=== PATIENT | female | born 1970 | race Caucasian/White ===

== ENCOUNTER 2024-03-09 21:32 | Emergency (ER) | payer OTHER ==
[2024-03-09 23:39] LABS: Absolute Basophils 0.1 K/uL (0-0.5); Absolute Eosinophils 1.1 K/uL (0-0.5); Absolute Monocytes 0.4 K/uL (0.1-1.3); Absolute Neutrophil 2.5 K/uL (1.8-8.0); Eosinophils % 17.3 % (0-4.4); Hematocrit 25.9 % (36.0-45.0); Hemoglobin 7.9 g/dL (12.0-15.0); Lymphocytes % 33.3 % (15.3-44.8); MCH 17.7 pg (27.0-35.0); MCHC 30.4 g/dL (32.0-36.0); MCV 58.2 fL (80-100); MPV 8.3 fL (7.6-11.3); Neutrophils % 41.4 % (41.7-73.7); Nucleated Red Blood Cells % 0.2 % (0-0); Platelets 383 thou/uL (152-406); RBC Red Blood Cell Count 4.46 M/uL (3.86-4.86); Red Cell Distribution Width 21.2 % (12.1-15.2)
[2024-03-09 23:43] LABS: PTT, Activated Partial Thromb 28.9 SECONDS (24.3-36.9); Protime INR 1.09
[2024-03-09 23:45] LABS: Albumin 3.2 g/dL (3.4-5.0); Albumin/Globulin Ratio 0.8 (1.1-1.8); Anion Gap 7.2 mEq/L (5.0-15.0); Bilirubin Total 0.3 mg/dL (0.2-1.0); Calcium Oxalate Crystals- Ur Few /HPF (None Seen); Globulin 4.1 g/dL (2.3-3.5); Potassium 3.2 mEq/L (3.5-5.1); Protein, Total 7.3 g/dL (6.4-8.2); Specific Gravity > 1.030 (1.005-1.030); Urine Bacteria 20-50 /HPF (<20); Urine Bilirubin NEGATIVE (Negative); Urine Blood 1+ (Negative); Urine Clarity Extremely Turbid (Clear); Urine Color Yellow (Yellow); Urine Culture Reflex Order NOT NEEDED; Urine Glucose NEGATIVE (Negative); Urine Ketones TRACE (Negative); Urine Microscopic Reflex YN ORDER UMIC; Urine Mucus 2+ /HPF (None Seen); Urine Nitrite 2+ (Negative); Urine Protein 1+ (Negative); Urine RBC <5 /HPF (None Seen); Urine Urobilinogen 1+ (Normal); Urine WBC <5 /HPF (<5); Urine pH 5.5 (5.0-7.0)
[2024-03-10] MEDS ORDERED: CEFTRIAXONE 1000 MG/VIAL ONE (00:06)
[2024-03-10 00:20] LABS: Blood Morphology Comment NOTED (NOT SEEN); Differential Total Cells Count 100; Eosinophils 22 % (0-3); Lymphocytes 32 % (15-42); Monocytes 5 % (0-10); Platelet Estimate ADEQ; Segmented Neutrophils 40 % (40-80)
[2024-03-10 00:21] LABS: Hypochromasia 3+; Microcytosis 3+; Target Cells 1+
--- NOTE | 2024-03-10 01:01 | EDPHYS ---
Physician Documentation [facility] Name: Jennifer Bowman Age: 53 yrs Sex: Female : 1970 Arrival Date: 03/09/2024 Time: 21:32 Bed 23 Private MD: ED Physician Rodo Christy HPI: 03/09 22:03 This 53 yrs old Female presents to ER via Ambulatory with complaints of ec2 stomach painful problem. 22:03 Patient arrives today for evaluation of worsening abdominal distention. Patient reports ec2 that she has been having abdominal distention and pain for the past year. Patient reports that she is more distended which is what prompted evaluation today. Patient reports no history of liver disease, no previous malignancy diagnosis, no daily alcohol use.. 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 - Infectious Disease History:: Denies. - Social history:: Smoking status: Patient reports the use of cigarette tobacco products. ROS: 22:03 Constitutional: as per hpi ec2 Exam: 22:03 Constitutional: GEN: NAD Head: atraumatic Eyes: EOMI Ears: External ears are ec2 normal. CV: tachy LUNGS: no respiratory distress ABD: Distended individual who is not guarding and not rigid with minimal TTP. SKIN: no evidence of rashes MSK: no evidence of trauma NEURO: moves all extremities equally Vital Signs: 21:42 BP 139 / 70; Pulse 112; Resp 18; Temp 98.1; Pulse Ox 100% ; Weight 66.68 kg; Height 5 bm8 ft. 4 in. ; Pain 10/10; 03/10 01:25 BP 118 / 80; Pulse 92; Resp 16; Temp 97.8; Pulse Ox 100% ; Pain 4/10; kb3 03/09 21:42 Body Mass Index 25.23 (66.68 kg, 162.56 cm) bm8 03/09 21:42 Pain Scale: Adult bm8 03/10 01:25 Pain Scale: Adult kb3 MDM: 03/09 22:03 Data reviewed: vital signs. ED course: Patient arrives today for evaluation of ec2 worsening abdominal distention. Examination remarkable for well-appearing nontoxic and appears otherwise in no acute distress with a distended abdomen with slightly tachycardic. Will obtain lab work, CT imaging. Differential diagnosis include malignancy, liver disease, renal dysfunction. . 22:22 Patient medically screened. ec2 23:38 ED course: I discussed the case with radiology, patient with a large cystic mass, ec2 concerning for ovarian neoplasm. . 23:54 ED course: Metabolic profile shows hypokalemia with potassium of 3.2, urine is ec2 infectious appearing. CBC shows marked anemia with a hemoglobin of 7.9. . 03/10 00:59 ED course: I updated the patient regarding the cancer diagnosis I discussed further ec2 testing and ultimately she stated that she has a primary care doctor that she has been waiting to schedule appointment and will follow-up with them. I discussed importance of further testing and management.. 03/09 22:02 Order name: CBC with Diff; Complete Time: 00:44 ec2 03/09 22:02 Order name: CMP; Complete Time: 23:54 ec2 03/09 22:02 Order name: Lipase; Complete Time: 23:54 ec2 03/09 22:02 Order name: Urinalysis w/ reflexes; Complete Time: 23:54 ec2 03/09 22:02 Order name: PT-INR; Complete Time: 23:54 ec2 03/09 22:02 Order name: Ptt, Activated; Complete Time: 23:54 ec2 03/09 23:45 Order name: Manual Differential; Complete Time: 00:44 EDMS 03/09 22:02 Order name: CT Abd/Pelvis - Without Contrast ec2 03/09 22:02 Order name: IV Saline Lock; Complete Time: 23:05 ec2 03/09 22:02 Order name: Labs collected and sent; Complete Time: 23:05 ec2 Administered Medications: 00:19 Drug: Rocephin IV 1 grams IV at calculated rate once; Given slow IV push per pharmacy lg3 instructions Route: IV; Rate: calculated rate; Site: left forearm; 01:25 Follow up: Response: No adverse reaction; IV Status: Completed infusion; IV Intake: kb3 100ml Disposition Summary: 03/10/24 01:00 Discharge Ordered Condition: Stable ec2 Diagnosis - Ovarian Mass ec2 - Hypokalemia ec2 - UTI/ Urinary tract infection, site not specified ec2 Followup: ec2 - With: Private Physician - When: - Reason: Re-evaluation by your physician Discharge Instructions: - Discharge Summary Sheet ec2 - Urinary Tract Infection, Adult, [id number] ec2 - Ovarian Cancer ec2 Forms: - Medication Reconciliation Form ec2 - Antibiotic Education ec2 - Prescription Opioid Use ec2 - Patient Portal Instructions ec2 - Leadership Thank You Letter ec2 Prescriptions: - Cephalexin 500 mg Oral capsule - take 1 capsule ORAL route every 12 hours for 5 days; 10 capsule; Refills: 0, ec2 Product Selection Permitted Signatures: Dispatcher [employer] Henrietta Gonzales RN RN lg3 Rodo Christy MD MD ec2 Pelon Rodríguez RN RN bm8 Piedad Landon RN kb3 Corrections: (The following items were deleted from the chart) 03/09 22:03 22:03 CBC+H.LAB.BRZ ordered. EDMS EDMS 22:03 22:03 COMPREHENSIVE METABOLIC PANEL+C.LAB.BRZ ordered. EDMS EDMS 22:03 22:03 LIPASE+C.LAB.BRZ ordered. EDMS EDMS 22:03 22:03 Urinalysis+U.LAB.BRZ ordered. EDMS EDMS 22:03 22:03 PROTIME (+INR)+COAG.LAB.BRZ ordered. EDMS EDMS 22:03 22:03 PTT, ACTIVATED+COAG.LAB.BRZ ordered. EDMS EDMS 22:04 22:03 Constitutional: GEN: NAD Head: atraumatic Eyes: EOMI Ears: External ears are ec2 normal. CV: regular rate LUNGS: no respiratory distress ABD: Distended individual who is not guarding and not rigid with minimal TTP. SKIN: no evidence of rashes MSK: no evidence of trauma NEURO: moves all extremities equally ec2
--- NOTE | 2024-03-10 01:01 | ER ---
Nurse's Notes [facility] Name: Jennifer Bowman Age: 53 yrs Sex: Female : 1970 Arrival Date: 03/09/2024 Time: 21:32 Bed 23 Private MD: Diagnosis: Ovarian Mass;Hypokalemia;UTI/ Urinary tract infection, site not specified Presentation: 03/09 21:42 Chief complaint: Patient states: i have had like atumor growing on me for 2 years but bm8 the pain is just getting worse and worse. Coronavirus screen: At this time, the client does not indicate any symptoms associated with coronavirus-19. Ebola Screen: Patient negative for fever greater than or equal to 101.5 degrees Fahrenheit, and additional compatible Ebola Virus Disease symptoms Patient denies exposure to infectious person. Patient denies travel to an Ebola-affected area in the 21 days before illness onset. No symptoms or risks identified at this time. Initial Sepsis Screen: Does the patient meet any 2 criteria? No. Patient's initial sepsis screen is negative. Does the patient have a suspected source of infection? No. Patient's initial sepsis screen is negative. Risk Assessment: Do you want to hurt yourself or someone else? Patient reports no desire to harm self or others. Onset of symptoms is unknown. 21:42 Method Of Arrival: Ambulatory bm8 21:42 Acuity: MAJO 3 bm8 Triage Assessment: 21:44 General: Appears in no apparent distress. uncomfortable, Behavior is calm, cooperative, bm8 appropriate for age. Pain: Complains of pain in abdomen. GI: Reports lower abdominal pain, upper abdominal pain. 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 - Infectious Disease History:: Denies. - Social history:: Smoking status: Patient reports the use of cigarette tobacco products. Screenin/25 00:15 [facility] ED Fall Risk Assessment (Adult) History of falling in the last 3 months, kb3 including since admission No falls in past 3 months (0 pts) Confusion or Disorientation No (0 pts) Intoxicated or Sedated No (0 pts) Impaired Gait No (0 pts) Mobility Assist Device Used No (0 pt) Altered Elimination No (0 pt) Score/Fall Risk Level 0 - 2 = Low Risk Oriented to surroundings, Maintained a safe environment, Educated pt \T\ family on fall prevention, incl call for assistance when getting out of bed. Abuse screen: Denies threats or abuse. Denies injuries from another. Nutritional screening: No deficits noted. Tuberculosis screening: No symptoms or risk factors identified. Assessment: 00:15 General: Appears in no apparent distress. comfortable, Behavior is calm, cooperative. kb3 00:15 Pain: Complains of pain in abdomen Pain does not radiate. Pain currently is 4 out of 10 kb3 on a pain scale. Quality of pain is described as heavy, pressure, Pain began years ago. 00:15 : Denies burning with urination, discharge, inability to void, incontinence, urinary kb3 frequency, urgency. Vital Signs: 03/09 21:42 BP 139 / 70; Pulse 112; Resp 18; Temp 98.1; Pulse Ox 100% ; Weight 66.68 kg; Height 5 bm8 ft. 4 in. ; Pain 10/10; 03/10 01:25 BP 118 / 80; Pulse 92; Resp 16; Temp 97.8; Pulse Ox 100% ; Pain 4/10; kb3 03/09 21:42 Body Mass Index 25.23 (66.68 kg, 162.56 cm) bm8 03/09 21:42 Pain Scale: Adult bm8 03/10 01:25 Pain Scale: Adult kb3 ED Course: 03/09 21:36 Patient arrived in ED. ra3 21:44 Triage completed. bm8 21:44 Arm band placed on right wrist. bm8 21:52 Rodo Christy MD is Attending Physician. ec2 22:26 CT Abd/Pelvis - Without Contrast In Process Unspecified. EDMS 23:05 Inserted saline lock: 20 gauge in left forearm, using aseptic technique. Blood lg3 collected. 23:05 Ptt, Activated Sent. lg3 23:05 PT-INR Sent. lg3 23:06 CBC with Diff Sent. lg3 23:06 CMP Sent. lg3 23:06 Lipase Sent. lg3 23:06 Urinalysis w/ reflexes Sent. lg3 06 00:15 Patient has correct armband on for positive identification. Bed in low position. Call kb3 light in reach. Side rails up X 1. Adult w/ patient. Provided Education on: Plan of care. 00:15 No provider procedures requiring assistance completed. kb3 01:26 IV discontinued, intact, bleeding controlled, No redness/swelling at site. kb3 Administered Medications: 00:19 Drug: Rocephin IV 1 grams IV at calculated rate once; Given slow IV push per pharmacy lg3 instructions Route: IV; Rate: calculated rate; Site: left forearm; 01:25 Follow up: Response: No adverse reaction; IV Status: Completed infusion; IV Intake: kb3 100ml Medication: 00:15 VIS not applicable for this client. kb3 Intake: 01:25 IV: 100ml; Total: 100ml. kb3 Outcome: 01:00 Discharge ordered by . ec2 01:25 Discharged to home ambulatory, with family, kb3 01:25 Condition: stable 01:25 Discharge instructions given to patient, family, Instructed on discharge instructions, follow up and referral plans. medication usage, Demonstrated understanding of instructions, follow-up care, medications, Prescriptions given X 1, 01:26 Patient left the ED. kb3 Signatures: Dispatcher [employer] EDHenrietta Youssef RN RN lg3 Piedad Landon, RN RN kb3 Rodo Christy MD MD ec2 Edna Law ra3 Pelon Rodríguez, RN RN bm8 Corrections: (The following items were deleted from the chart) 01:05 00:15 Pain: Complains of pain in suprapubic area kb3 kb3
[2024-03-10 07:34] VITALS: BP 118/80; TEMP 97.8; O2SAT 100
--- NOTE | 2024-03-10 16:13 | RAD REPORT ---
EXAM DESCRIPTION: CT - Abdomen Pelvis Wo Contrast - 03/10/2024 6:40 am CLINICAL HISTORY: Abd pain; Abdominal distention TECHNIQUE: Axial computed tomography images of the abdomen and pelvis without intravenous contrast. Sagittal and coronal reformatted images were created and reviewed. This CT exam was performed usi ng one or more of the following dose reduction techniques: automated exposure control, adjustment o f the mA and/or kV according to patient size, and/or use of iterative reconstruction technique. COMPARISON: No relevant prior studies available. FINDINGS: Lung bases: Unremarkable. No mass. No consolidation. ABDOMEN: Liver: Unremarkable. Gallbladder and bile ducts: Unremarkable. No calcified stones. No ductal dilation. Pancreas: Unremarkable. No ductal dilation. Spleen: Unremarkable. No splenomegaly. Adrenals: Unremarkable. No mass. Kidneys and ureters: Unremarkable. No obstructing stones. No hydronephrosis. Stomach and bowel: Moderate stool. No bowel obstruction. No mucosal thickening. PELVIS: Appendix: Normal caliber appendix. No findings to suggest acute appendicitis. Bladder: The urinary bladder is decompressed. No stones. Reproductive: The uterus is not well visualized. There is a large complex cystic lesion with multip le peripheral areas of soft tissue nodularity and scattered septations extending from the midline pel vis into the upper abdomen measuring approximately 31.5 x 22 x 28 cm (CC by AP by transverse). ABDOMEN and PELVIS: Intraperitoneal space: Trace free fluid. No free air. Bones/joints: Mild multilevel spondylosis. No acute fracture. No dislocation. Soft tissues: Unremarkable. Vasculature: Unremarkable. No abdominal aortic aneurysm. Lymph nodes: Unremarkable. No enlarged lymph nodes. IMPRESSION: 1. Large complex cystic lesion extending from the midline pelvis into the upper abdome n measuring approximately 31.5 x 22 x 28 cm (CC by AP by transverse) concerning for a cystic ovarian neoplasm. 2. Other findings as above. THIS REPORT CONTAINS FINDINGS THAT MAY BE CRITICAL TO PATIENT CARE: The findings were verbally discus sed via telephone conference with Dr. Rodo Christy on 03/09/2024 11:35 PM CDT. The results were acknow ledged and understood. Electronically signed by: Khanh Cabral MD 03/09/2024 11:37 PM CDT RP Due to temporary technical issues with the PACS/Fluency reporting system, reports are being signed by the in house radiologists without review as a courtesy to insure prompt reporting. The interpreting radiologist is fully responsible for the content of the report.
== END 2024-03-10 01:26 | disposition home or self-care (01) ==
LOC: ER 21:32
DX: N83.9 Noninflammatory disorder of ovary, fallopian tube and broad ligament, unspecified (principal); N39.0 Urinary tract infection, site not specified; E87.6 Hypokalemia
CPT/HCPCS: 85025; 81001; 36415; 85610; 85730; 83690; 80053; 74176; J0696